=== PATIENT | male | born 1930 | race Caucasian/White ===

== ENCOUNTER 2017-11-30 19:05 | Inpatient (IN) | payer OTHER ==
[~2017-11-30] VITALS: Ht 185.4 cm; Wt 68.0 kg
[2017-11-30 19:16] VITALS: BP 162/65
[2017-11-30 19:52] LABS: HEMATOCRIT 32.9 % (42.0-52.0); HEMOGLOBIN 11.1 gm/dL (14.0-18.0); MCH 28.8 pg (26.0-34.0); MCHC 33.6 g/dL (28.0-37.0); MCV 85.6 fL (80.0-100.0); MPV 7.1 fl. (7.2-11.1); NUCLEATED RBCS 0 /100WBC; PLATELET COUNT* 189 thou/uL (150-400); RBC 3.84 mil/uL (4.50-6.00); RDW-CV 15.2 % (10.5-14.5); WBC 5.2 thou/uL (4.0-11.0)
[2017-11-30 20:00] LABS: INR 2.2; PROTIME 20.9 Seconds (9.20-11.50)
[2017-11-30 20:07] LABS: ANION GAP 8 mmol/L (7-16); BUN 32 mg/dL (7-18); CALCIUM 8.3 mg/dL (8.5-10.1); CHLORIDE 99 mmol/L (98-107); CO2 23 mmol/L (21-32); CREATININE 2.2 mg/dL (0.6-1.3); GLUCOSE 99 mg/dL (70-99); POTASSIUM 4.7 mmol/L (3.5-5.1); SODIUM 130 mmol/L (136-145)
[2017-11-30 20:14] LABS: ABSOLUTE BASOPHILS 0.1 thou/uL (0.0-0.2); ABSOLUTE EOSINOPHILS 0.1 thou/uL (0.0-0.7); ABSOLUTE LYMPHOCYTES 0.5 thou/uL (0.8-5.3); ABSOLUTE MONOCYTES 0.7 thou/uL (0.0-1.2); ABSOLUTE NEUTROPHILS 3.9 thou/uL (1.6-8.1); ALBUMIN 2.8 g/dL (3.4-5.0); ALKALINE PHOSPHATASE 124 U/L (46-116); HYPOCHROMASIA 1+; LIPASE 51 U/L (73-393); PLATELET ESTIMATE ADEQUATE; SGOT 22 U/L (15-37); SGPT 22 U/L (30-65); TOTAL BILIRUBIN 0.2 mg/dL (<0.1-1.0); TOTAL PROTEIN 7.1 g/dL (6.4-8.2)
[2017-11-30 20:19] LABS: INFLUENZA B ANTIGEN None Detected (None Detect)
[2017-11-30 20:29] LABS: TROPONIN-I LEVEL <0.06 ng/mL (<0.06)
[2017-11-30] MEDS ORDERED: OSELB75 PO (20:52)
[2017-11-30 22:22] VITALS: BP 151/80
[2017-11-30 22:23] LABS: URINE BILIRUBIN NEGATIVE (Negative); URINE BLOOD 1+ (Negative); URINE CLARITY CLEAR; URINE COLOR YELLOW; URINE GLUCOSE-RANDOM 2+ (Negative); URINE KETONES NEGATIVE (Negative); URINE LEUKOCYTES-REFLEX NEGATIVE (Negative); URINE NITRITE-REFLEX NEGATIVE (Negative); URINE PROTEIN 2+ (Negative); URINE UROBILINOGEN 0.2 E.U./dl (0.2-1.0)
[2017-11-30 22:40] LABS: BACTERIA-REFLEX None Seen /HPF (None Seen); COARSE GRANULAR CASTS 0-3 Few /LPF (None Seen); CRYSTALS None Seen /LPF (None Seen); FINE GRANULAR CASTS 0-3 Few /LPF (None Seen); HYALINE CASTS 0-3 Few /LPF (None Seen); SQUAMOUS NONE SEEN /LPF (0-3); URINE RBC 3-10 Few /HPF (0-2); URINE WBC-REFLEX 0-5 Rare /HPF (0-5)
[2017-11-30 23:00] VITALS: BP 188/84
[2017-11-30] MEDS ORDERED: ASPIR 8181 M1 PO (23:35)
[2017-11-30] MEDS ORDERED: JANUVIA50 MG PO (23:36)
[2017-11-30] MEDS ORDERED: CREON DR 36,001 EACH PO (23:38)
[2017-11-30] MEDS ORDERED: CARAFATE 1 GM TA1 G1 PO (23:38)
[2017-11-30] MEDS ORDERED: PROTONIX40 M1 PO (23:41)
[2017-11-30] MEDS ORDERED: COUMADIN 4 MG TA4 M1 PO ×2 (23:44→23:45)
[2017-11-30] MEDS ORDERED: LEVEMIR100 UNIT/1 SUBQ (23:46)
[2017-11-30] MEDS ORDERED: NOVOLOG100 UNIT/1 SUBQ (23:54)
[2017-12-01 10:00] VITALS: BP 141/59
[2017-12-01 13:01] LABS: INR 2.4; PROTIME 22.9 Seconds (9.20-11.50)
[2017-12-01 15:00] VITALS: BP 187/65
[2017-12-01 19:38] VITALS: BP 161/71
[2017-12-02 04:16] LABS: INR 2.4; PROTIME 23.1 Seconds (9.20-11.50)
[2017-12-02 09:15] VITALS: BP 139/69
--- NOTE | 2017-12-02 14:00 | EKG ---
[place] [address] ELECTROCARDIOGRAM REPORT Name: EMMIE PAIGE Room: [address] ADM IN R.#: [id number] Admission: 11/30/17 Attend Phys: Adan Hensley Discharge: Date of : 34 Report #: [id number] THIS REPORT FOR: //name// [facility] ED Test Date: 2017-11-30 Test Time: 19:55:56 Pat Name: EMMIE PAIGE Department: Room: [facility] Gender: M Quality Assurance Auditor: SHIRLEY : 1930 Requested By: Talia Bowman Order Number: [id number] MD: Brown Roper Measurements Intervals [place] Rate: 77 P: 54 NC: 151 QRS: 28 QRSD: 95 T: 60 QT: 398 QTc: 451 Interpretive Statements Sinus rhythm No previous ECG available for comparison Electronically Signed On 12-02-2017 13:59:50 TIMBER TRIMMER by Brown Roper [email or web address] <ELECTRONICALLY SIGNED> By: Brown Roper MD, [facility] 12/02/17 1359 [id number] 54 Brown [email or web address] MD, FACC /EPI
[2017-12-02 17:00] VITALS: BP 192/82
[2017-12-02 18:27] VITALS: BP 185/76
[2017-12-02 20:00] VITALS: BP 196/95
[2017-12-03 00:24] VITALS: BP 159/110
[2017-12-03 04:31] LABS: INR 3.1; PROTIME 30.1 Seconds (9.20-11.50)
[2017-12-03 04:44] VITALS: BP 168/72
[2017-12-03] MEDS ORDERED: OSELB75 PO (09:08)
[2017-12-03 09:15] VITALS: BP 148/72
[2017-12-03 10:44] VITALS: BP 148/72
== END 2017-12-03 12:26 | disposition home or self-care (01) | DRG 542 ==
LOC: M.ERS 19:05 → M.TBA-ER 21:10 → M.3W 21:10
PROVIDERS: Physician Assistant; ADMIT Internal Medicine
DX: M80.072A Age-related osteoporosis with current pathological fracture, left ankle and foot, initial encounter for fracture (principal); E43 Unspecified severe protein-calorie malnutrition; Z68.1 Body mass index [BMI] 19.9 or less, adult; N18.4 Chronic kidney disease, stage 4 (severe); E86.0 Dehydration; I95.1 Orthostatic hypotension; W18.39XA Other fall on same level, initial encounter; S09.90XA Unspecified injury of head, initial encounter; J11.1 Influenza due to unidentified influenza virus with other respiratory manifestations; Y93.89 Activity, other specified; Z85.118 Personal history of other malignant neoplasm of bronchus and lung; Z79.82 Long term (current) use of aspirin; Z93.2 Ileostomy status; Z79.899 Other long term (current) drug therapy; Z90.49 Acquired absence of other specified parts of digestive tract; Z87.891 Personal history of nicotine dependence; Y92.89 Other specified places as the place of occurrence of the external cause; Y99.8 Other external cause status